=== PATIENT | male | born 1995 ===

== ENCOUNTER 2021-12-02 23:27 | Emergency (ER) | payer OTHER, SELFPAY ==
[2021-12-02 23:39] VITALS: BP 122/64; PULSE 90; RESP 16; TEMP 37.2; O2SAT 98; BMI 24.3
[2021-12-03 02:10] VITALS: BP 116/76; PULSE 88; RESP 18; O2SAT 98
[2021-12-03 03:30] VITALS: BP 122/61; PULSE 85; RESP 14; TEMP 37.3; O2SAT 97
--- NOTE | 2021-12-03 03:45 | ED.NAVMDI ---
HPI - Nausea/Vomiting/Diarrhea General Chief complaint: Nausea/Vomiting/Diarrhea Stated complaint: vomiting all day; shrimp allergy? Time Seen by Provider: 12/03/21 03:44 Source: patient and family ( Friend) Mode of arrival: ambulatory Limitations: no limitations History of Present Illness HPI Narrative: 26-year-old male came in for evaluation of nausea vomiting and diarrhea. Patient's symptoms started since last night 3 hours after eating shrimp and [place], patient flew in to [facility] [place] been having nonstop vomiting, upper epigastric abdominal pain with vomiting. No relieving factor, no aggravating factor, vomiting is associated with upper epigastric pain but no lower or right lower quadrant tenderness or pain. Never had abdominal surgery. Related Data Allergies Allergy/AdvReac Type Severity Reaction Status Date / Time No Known Allergies Allergy Verified 12/02/21 23:39 Review of Systems Review of Systems: All other systems are reviewed and are negative Constitutional: Reports as per HPI and Reports no additional constitutional complaints Eyes: Reports as per HPI and Reports no additional eye complaints Reports system reviewed and no additional complaints, except as documented Cardiovascular: Reports as per HPI and Reports no additional cardiovascular complaints Respiratory: Reports as per HPI and Reports no additional respiratory complaints Gastrointestinal: Reports as per HPI and Reports no additional gastrointestinal complaints Genitourinary: Reports no additional female genitourinary complaints Musculoskeletal: Reports no additional musculoskeletal complaints Skin/Breast: Reports system reviewed and no additional complaints, except as docu Psychiatric: Reports no additional psychiatric complaints Endocrine: Reports no additional endocrine complaints Hematologic/Lymphatic: Reports no additional hematologic/lymphatic complaints Allergic/Immunologic: Reports no additional allergic/immunologic complaints Reports system reviewed and no additional complaints, except as documented and Reports Abnormal speech present [facility] Past Medical History Medical History No known health problems Social History Social History Alcohol intake: unknown Patient Tobacco Use Status: Never used Tobacco Use of substances other than those prescribed or required for medical reasons: Unknown Physical Exam Vital Signs: Vital Signs: Last Vital Signs Temp 98.9 F 12/02/21 23:39 Pulse 88 12/03/21 02:10 Resp 18 12/03/21 02:10 BP 116/76 12/03/21 02:10 Pulse Ox 98 12/03/21 02:10 BMI result Body Mass Index 24.3 vital signs have been reviewed as appeared to be correct. Blood pressure normal. Heart rate normal. Respiration rate normal. Temperature normal. Oxygen saturation normal. Appearance: Alert. Oriented X3. No acute distress. Head: Normal external exam. Normocephalic. Atraumatic. No Fuentes signs noted. No raccoon eyes noted Eyes: PERRLA. EOMI. Conjunctiva and sclera normal. Eyelids normal. ENT: TM's Normal. Pharynx normal. Uvula midline. Moist mucous membranes. No trismus noted. No drooling noted. No muffled voice noted. Neck: Normal inspection. Neck supple. FROM. No adenopathy. Thyroid Normal. No meningeal signs. No neck mass noted. CVS: Normal heart rate and rhythm. Heart sound normal. No murmurs noted. Pulses normal throughout. Respiratory: No respiratory distress. Painless inspiration. Breath sounds normal. No wheezes/rales/rhonchi noted. Chest nontender. No accessory muscle usage noted or decreased air movement noted. Abdomen: Soft , mild epigastric tenderness with no rebound tenderness , or guarding.. Bowel sounds normal in all 4 quadrants. No distention noted. No organomegaly noted. No visible injury noted. Back: No CVA tenderness. Full range of motion noted. Skin: Skin warm and dry. Normal skin color. Normal skin turgor. No rashes/lesions/lacerations noted. Extremities: No lower extremity edema. Extremities exhibit normal range of motion. Extremities nontender. Neuro: Oriented X 3. Cranial nerve exam: II-XII are grossly intact No motor deficit. No sensory deficit. Reflexes normal. Course Course Course Narrative: Assessment and plan. 26-year-old male came in after eating shrimp last night with vomiting and diarrhea. Physical exam and lab finding are more consistent with gastroenteritis. Patient now feels better after IV hydration and Zofran, able to tolerate clear fluid in the emergency department will discharge home. Discharge Plan Discharge Clinical Impression: Gastroenteritis Patient Disposition: Home, Self-Care Instructions: Gastroenteritis (ED) Referrals: Physician,Paulo J [Primary Care Provider] - 2 days
[2021-12-03 03:46] VITALS: BP 122/61; PULSE 85; RESP 14; TEMP 37.3; O2SAT 97
[2021-12-03 03:58] LABS: Basophils Percent Auto 0.3 % (0-2); Eosinophils Percent Auto 0.3 % (0-4); Hematocrit 49.1 % (42.0-52.0); Hemoglobin 16.5 g/dl (14.0-18.0); Imm Gran Abs Auto 0.05 X10*3/uL (0.00-0.03); Imm Gran Pct Auto 0.5 % (0.0-0.4); Lymphocytes Absolute Auto 0.3 X10*3/uL (1.2-4.9); Lymphocytes Percent Auto 3.1 % (20-40); MANUAL DIFF FLAG SCAN; Mean Corpuscular HGB Conc 33.6 g/dl (31.0-36.0); Mean Corpuscular Hemoglobin 29.1 pg (27.0-33.0); Mean Corpuscular Volume 86.6 fL (80.0-98.0); Mean Platelet Volume 10.2 fL (9.4-12.4); Monocytes Absolute Auto 0.4 X10*3/uL (0.1-1.2); Monocytes Percent Auto 3.8 % (2-11); Neutrophils Absolute Auto 9.8 x10*3/uL (2.0-8.3); Platelet Count 224 X10*3/uL (160-400); Red Blood Count 5.67 X10*6/uL (4.60-5.80); Red Cell Distribution Width 12.2 % (11.0-16.0); SCAN SMEAR FLAG 1; White Blood Count 10.7 X10*3/uL (4.8-10.8)
[2021-12-03 04:01] LABS: Appearance Urine CLEAR; Color Urine YELLOW; Glucose Urine UA NEG (NEG); Leukocyte Esterase Urine NEG (NEG); Nitrite Urine NEG (NEG); Urine Blood NEG (NEG); Urine Ketones NEG (NEG); Urine Protein TRACE MG/DL (NEG-TRACE)
[2021-12-03 04:06] LABS: SLIDE REVIEW VERIFIED
[2021-12-03] MEDS: Magnesium Hydrox/Alum Hydrox 30 ML ORAL.SUSP PO (04:11)
[2021-12-03] MEDS: ondansetron HCL 4 MG/2 ML VIAL IVPUSH (04:11)
[2021-12-03] MEDS: Famotidine/PF 20 MG/2 ML VIAL IVPUSH (04:11)
[2021-12-03] MEDS: 0.9 % Sodium Chloride 1,000 ML 999 ML IV (04:11)
[2021-12-03 04:21] LABS: Alanine Aminotransferase 27 U/L (0-40); Albumin Level 4.9 g/dL (3.5-5.0); Alkaline Phosphatase 58 U/L (39-117); Anion Gap 13 (12-20); Aspartate Amino Transferase 16 U/L (5-37); Bilirubin Direct 0.4 mg/dL (0.0-0.5); Bilirubin Total 1.2 mg/dL (0.0-1.0); Blood Urea Nitrogen 13 mg/dL (9-16); Calcium 9.9 mg/dL (8.4-10.2); Carbon Dioxide 27 mmol/L (22-29); Chloride 101 mmol/L (96-108); Creatinine Clr Calc Pharmacy 128.1; Estimated Glomerular Filt Rate > 60; Glucose Random 109 mg/dL (60-115); Lipase 14 U/L (8-78); Potassium 4.4 mmol/L (3.3-5.1); Sodium 137 mmol/L (135-145)
[2021-12-03 06:00] VITALS: BP 131/61; PULSE 86; RESP 15; O2SAT 97
== END 2021-12-03 07:06 | disposition home or self-care (01) ==
PROVIDERS: Emergency Provider Emergency Medicine
DX: K52.9 Noninfective gastroenteritis and colitis, unspecified (principal)
CPT/HCPCS: 36415; 80048; 80076; 81003; 83690; 85025; 96361; 96374; 96375; 99284; 99285; J2405

== ENCOUNTER 2023-07-19 16:42 | Emergency (ER) | payer OTHER, SELFPAY ==
--- NOTE | ~2023-07-19 | CT_ITS ---
EXAMINATION: CT ABDOMEN AND PELVIS WITH CONTRAST CLINICAL INFORMATION: Left lower quadrant pain COMPARISON: None available. TECHNIQUE: Multidetector volumetric images were obtained from the superior aspect of the liver through the pubic symphysis following administration 85 mL of Omnipaque 350 intravenous contrast. Sagittal and coronal reformatted images were obtained on the technologist's workstation. Oral contrast: No This CT examination was performed using dose optimization techniques as appropriate, variously including the following: *Automated exposure control *Adjustment of mA and/or kV according to patient size (this includes techniques or standardized protocols for targeted exams where dose is matched to indication/reason for exam; i.e. extremities or head) *Use of iterative reconstruction technique DLP: 509 mGy-cm FINDINGS: LUNG BASES: The visualized lung bases are unremarkable. LIVER, GALLBLADDER, AND BILIARY TREE: The liver is normal in size, shape, and attenuation. No focal hepatic lesion or biliary ductal dilatation is present. The gallbladder is unremarkable with no evidence of radiopaque gallstones, gallbladder wall thickening, or obvious pericholecystic inflammatory changes. PANCREAS: Unremarkable. SPLEEN: Unremarkable. ADRENAL GLANDS: Unremarkable. KIDNEYS AND URETERS: The kidneys are normal in size, shape, and attenuation. No hydronephrosis, hydroureter, or calculi seen. No perinephric stranding. BLADDER: Unremarkable. GASTROINTESTINAL TRACT: There are subtle areas of inflammatory changes. The sigmoid colon to the level of the splenic flexure appears thickened even the left with collapsed state with mild engorgement of the vasa recta. Similar changes also noted involving the terminal ileum some mucosal edema noted with bowel wall thickening and disorder motility. Normal appendix. Mild adenopathy especially ileocolic mesentery. ABDOMINAL WALL: No significant hernia is appreciated. LYMPH NODES: Normal. VASCULAR: Unremarkable. PELVIC VISCERA: Unremarkable. OSSEOUS STRUCTURES: Unremarkable. CT/CT abdomen pelvis w IV con IMPRESSION: Nonspecific inflammatory changes involving the terminal ileum and sigmoid colon as above. Correlate with any history of inflammatory bowel disease. Pattern favors an infectious versus an inflammatory ileocolitis. Fleischner guidelines were followed.
--- NOTE | 2023-07-19 16:45 | ED.ABDPAIN ---
HPI - Abdominal Pain General Chief Complaint: Abdominal Pain Stated Complaint: abdominal pain Time Seen by Provider: 07/19/23 17:02 Source: patient Mode of arrival: ambulatory Limitations: no limitations History of Present Illness HPI narrative: Patient is a 28-year-old male presenting to the emergency department with complaint of left lower quadrant abdominal pain as well as diarrhea for the past 3 days. Reports last night had sweats and chills but did not take temperature. Reports nausea due to the pain but denies any vomiting. Denies any cough or other respiratory complaints. States that he returned from [place] on Thursday. Denies any blood in his stool or dark, tarry stool. Any urinary frequency, dysuria, hematuria or other urinary symptoms. Denies back or flank pain. MD elicited complaint: abdominal pain Pertinent past history: other (Recent travel) Onset (ago): day(s) Pain Consistency: colicky Location: LLQ Severity: severe Quality: cramping Exacerbating factors: nothing Relieving factors: nothing Context: foreign travel Associated symptoms: nausea and chills Related Data Allergies Allergy/AdvReac Type Severity Reaction Status Date / Time No Known Allergies Allergy Verified 07/19/23 16:49 Review of Systems Review of Systems As per HPI. Yes all other systems are reviewed and are negative Constitutional: Reports as per HPI PMF Past Medical History Medical History No known health problems Social History Social History Alcohol intake: unknown Patient Tobacco Use Status: Never used Tobacco Smoked in Last 30 Days: No Substance Use Type: Marijuana Advance Directives: No Physical Exam ED Vital Signs: Vital Signs - 24 hr 07/19/23 16:46 Temperature 98.5 F Pulse Rate 93 Respiratory Rate 16 Blood Pressure 131/86 Pulse Oximetry 99 Oxygen Delivery Method Room Air BMI result Body Mass Index 24.1 Vital signs have been reviewed and appear to be correct. Blood pressure normal. Heart rate normal. Respiratory rate normal. Temperature normal. Oxygen saturation normal. Const General: cooperative, healthy appearing and no acute distress Orientation/consciousness: oriented to person, oriented to place, oriented to time and patient oriented x3 Limitations: no limitations HENMT Head: Yes normocephalic and Yes atraumatic Ears: external ears normal General nose exam: Normal external nose present Face and sinus: Yes face symmetric Mouth: oropharynx normal and moist mucous membranes Throat: Yes uvula midline Eyes Pupils: Equal, round and reactive pupils present Neck Neck: Yes normal visual inspection and Yes supple Resp Effort & Inspection: normal respiratory effort and able to speak in complete sentences Auscultation: clear to auscultation bilaterally Cardio Rate: regular rate Rhythm: regular rhythm Heart sounds: S1 normal heart sound present and S2 normal heart sound present GI Inspection: Yes normal to inspection Palpation (GI): Soft to palpation, Tenderness to palpation present (GI) in the LLQ, no guarding and No Rebound tenderness present Auscultation: normoactive bowel sounds General: Yes no CVA tenderness Back/Spine/Pelvis Back: no CVA tenderness Skin General skin exam: elasticity normal and turgor normal Neuro General: oriented to person, oriented to place, oriented to time, patient oriented x3, moves all extremities, no focal motor deficits and CN's II-XI intact bilaterally Cranial nerves: Yes Equal, round and reactive pupils present Cognition (Neuro): normal cognition Extrem General: Yes full ROM, Yes no pedal edema and Yes no calf tenderness Psych Mental Status: mental status grossly normal Affect: normal affect Thought process: Normal thought process present Course Course Course Narrative: RME - 28 yo male presents to the ER for evaluation of 3 days of lower abdominal pain (L>R) and clear diarrhea w/ small specks of non-bloody stool x6 today, x13 yesterday. +nausea but no vomiting. + fever 2 nights ago. No urinary symptoms. No known sick contacts. Recently traveled to [facility] last week. +LLQ tenderness on exam. 7/10 pain now w/ nausea. Plan: lab workup, stool studies, CT scan Medical Decision Making Medical Decision Making MDM Narrative: Patient is a 28-year-old male presenting to the emergency department with complaint of left lower quadrant abdominal pain as well as diarrhea for the past 3 days. On exam patient is awake, A+Ox3, VS WNL, afebrile, normal neurological exam without focal deficits, physical exam findings as above. Given reported symptoms and physical exam findings, initial differential includes traveler's diarrhea, diverticulitis, gastroenteritis, UTI/renal colic. Do not suspect testicular torsion, mesenteric ischemia, SBO. Labs notable for no leukocytosis, no anemia, no electrolyte abnormalities. CT notable for nonspecific inflammatory changes involving the terminal ileum and sigmoid colon consistent with infectious ileocolitis. My interpretation is in agreement with the radiologist's interpretation. Results discussed with patient and all questions answered. The patient is stable for discharge home at this time. No stool specimen obtained while patient in the ED. Patient provided with outpatient lab requisition for GI panel and C diff testing. Advised patient to ensure adequate fluid intake, adequate rest. Return precautions discussed at bedside. Patient verbalized understanding of and agreement with plan. Differential Diagnosis Differential Diagnoses: The differential diagnosis associated with the presentation includes As per [facility]. Admission/Observation Consideration of admission/observation: Escalation of care including admission/observation considered Lab Data [facility] Lab Attestation statement: I reviewed the patient's lab results. As per [facility]. 07/19/23 16:56 07/19/23 16:56 Labs: Lab Results 07/19/23 Range/Units 16:56 WBC 9.0 (4.8-10.8) X10*3/uL RBC 5.23 (4.60-5.80) X10*6/uL Hgb 15.0 (14.0-18.0) g/dl Hct 44.7 (42.0-52.0) % MCV 85.5 (80.0-98.0) fL MCH 28.7 (27.0-33.0) pg MCHC 33.6 (31.0-36.0) g/dl RDW 12.4 (11.0-16.0) % Plt Count 224 (160-400) X10*3/uL MPV 10.0 (9.4-12.4) fL Immature Gran % (Auto) 0.3 (0.0-0.4) % Neut % (Auto) 76.9 H (45-73) % Lymph % (Auto) 14.6 L (20-40) % Sterling % (Auto) 7.1 (2-11) % Eos % (Auto) 0.8 (0-4) % Baso % (Auto) 0.3 (0-2) % Lymph # (Auto) 1.3 (1.2-4.9) X10*3/uL Sterling # (Auto) 0.6 (0.1-1.2) X10*3/uL Eos # (Auto) 0.1 (0.0-0.4) X10*3/uL Baso # (Auto) 0.0 (0.0-0.2) X10*3/uL Abs Immat Gran (auto) 0.03 (0.00-0.03) X10*3/uL Absolute Neuts (auto) 6.9 (2.0-8.3) x10*3/uL Absolute Nucleated RBC 0.000 (0.0-0.012) X10*3/uL Nucleated RBC % (auto) 0.0 (0.0-0.2) /100WBC Sodium 138 (135-145) mmol/L Potassium 3.7 (3.3-5.1) mmol/L Chloride 104 (96-108) mmol/L Carbon Dioxide 22 (22-29) mmol/L Anion Gap 16 (12-20) BUN 11 (9-16) mg/dL Creatinine 0.90 (0.5-1.4) mg/dL Estim Creat Clear Calc 127.2 Estimated GFR > 60 Random Glucose 105 (60-115) mg/dL Calcium 9.9 (8.4-10.2) mg/dL Magnesium 2.1 (1.6-2.6) mg/dL Total Bilirubin 0.6 (0.0-1.0) mg/dL Direct Bilirubin 0.2 (0.0-0.5) mg/dL AST 20 (5-37) U/L ALT 26 (0-40) U/L Alkaline Phosphatase 72 (39-117) U/L Total Protein 7.7 (6.5-8.0) g/dL Albumin 4.5 (3.5-5.0) g/dL Independent Interpretation I performed an independent interpretation of an: CT Scan Interpretation: Nonspecific inflammatory changes to terminal ileum and sigmoid colon consistent with infectious etiology Radiology Impression Discussion of test interpretation with radiology: I have reviewed the radiologist's reading. Radiologist Impression: CT/CT abdomen pelvis w IV con IMPRESSION: Nonspecific inflammatory changes involving the terminal ileum and sigmoid colon as above. Correlate with any history of inflammatory bowel disease. Pattern favors an infectious versus an inflammatory ileocolitis. Fleischner guidelines were followed. External Record Review External record reviewed: Inpatient record, Office record and Outpatient record Medications Administered Discontinued Medications Generic Name Dose Route Start Last Admin Trade Name Freq PRN Reason Stop Dose Admin Sodium Chloride 1,000 mls @ 999 mls/hr 07/19/23 17:15 07/19/23 17:17 Ns IV 07/19/23 18:15 999 mls/hr .Q1H1M DELICIA Administration Iohexol 100 ml 07/19/23 17:42 07/19/23 17:43 Iohexol 350 Mg/Ml 100 Ml Infus..Btl IV 07/19/23 17:43 85 ml ONCE ONE Administration Morphine Sulfate 4 mg 07/19/23 16:50 07/19/23 17:17 Morphine Sulfate 4 Mg/Ml Cartridge IVPUSH 07/19/23 16:51 4 mg ONCE ONE Administration Protocol Ondansetron HCl 4 mg 07/19/23 16:50 07/19/23 17:18 Ondansetron Hcl 4 Mg/2 Ml Vial IVPUSH 07/19/23 16:51 4 mg ONCE ONE Administration Discharge Plan Discharge Clinical Impression: Diarrhea Qualifiers: Diarrhea type: unspecified type Qualified Code(s): R19.7 - Diarrhea, unspecified Patient Disposition: Home, Self-Care Instructions: Traveler's Diarrhea (ED), Acute Diarrhea (ED) Additional Instructions: You have been evaluated in the emergency department today for abdominal pain and diarrhea. Your CT scan showed evidence of inflammation in your colon. Your unable to provide a stool specimen in the emergency department today. You were provided with an outpatient order for stool testing. Please go to the lab tomorrow morning to obtain necessary collection items to provide a stool sample. Please schedule an appointment with your primary care physician. Return to the emergency department if you experience worsening or uncontrolled pain, fevers 100.4? F or greater, recurrent vomiting, inability to tolerate food or fluids by mouth, bloody stools or vomit, black or tarry stools, or any other concerning symptoms.
[2023-07-19 16:46] VITALS: BP 131/86; PULSE 93; RESP 16; TEMP 36.9; O2SAT 99; BMI 24.1
[2023-07-19 17:01] LABS: MANUAL DIFF FLAG NO
[2023-07-19 17:02] LABS: Basophils Percent Auto 0.3 % (0-2); Eosinophils Absolute Auto 0.1 X10*3/uL (0.0-0.4); Eosinophils Percent Auto 0.8 % (0-4); Hematocrit 44.7 % (42.0-52.0); Imm Gran Abs Auto 0.03 X10*3/uL (0.00-0.03); Imm Gran Pct Auto 0.3 % (0.0-0.4); Lymphocytes Absolute Auto 1.3 X10*3/uL (1.2-4.9); Lymphocytes Percent Auto 14.6 % (20-40); Mean Corpuscular HGB Conc 33.6 g/dl (31.0-36.0); Mean Corpuscular Hemoglobin 28.7 pg (27.0-33.0); Mean Corpuscular Volume 85.5 fL (80.0-98.0); Monocytes Absolute Auto 0.6 X10*3/uL (0.1-1.2); Monocytes Percent Auto 7.1 % (2-11); Neutrophils Absolute Auto 6.9 x10*3/uL (2.0-8.3); Neutrophils Percent Auto 76.9 % (45-73); Platelet Count 224 X10*3/uL (160-400); Red Blood Count 5.23 X10*6/uL (4.60-5.80); Red Cell Distribution Width 12.4 % (11.0-16.0)
[2023-07-19 17:17] LABS: Alanine Aminotransferase 26 U/L (0-40); Albumin Level 4.5 g/dL (3.5-5.0); Alkaline Phosphatase 72 U/L (39-117); Anion Gap 16 (12-20); Aspartate Amino Transferase 20 U/L (5-37); Bilirubin Direct 0.2 mg/dL (0.0-0.5); Bilirubin Total 0.6 mg/dL (0.0-1.0); Blood Urea Nitrogen 11 mg/dL (9-16); Calcium 9.9 mg/dL (8.4-10.2); Carbon Dioxide 22 mmol/L (22-29); Chloride 104 mmol/L (96-108); Creatinine Clr Calc Pharmacy 127.2; Estimated Glomerular Filt Rate > 60; Glucose Random 105 mg/dL (60-115); Magnesium 2.1 mg/dL (1.6-2.6); Potassium 3.7 mmol/L (3.3-5.1); Sodium 138 mmol/L (135-145); Total Protein 7.7 g/dL (6.5-8.0)
[2023-07-19] MEDS: Morphine Sulfate 4 MG/ML CARTRIDGE IVPUSH (17:17)
[2023-07-19] MEDS: 0.9 % Sodium Chloride 1,000 ML 999 ML IV (17:17)
[2023-07-19] MEDS: ondansetron HCL 4 MG/2 ML VIAL IVPUSH (17:18)
[2023-07-19] MEDS: iohexoL 350 MG/ML 100 ML INFUS..BTL IV (17:43)
== END 2023-07-19 19:25 | disposition home or self-care (01) ==
PROVIDERS: Physician Assistant; Emergency Provider Emergency Medicine
DX: R10.32 Left lower quadrant pain (principal); R11.2 Nausea with vomiting, unspecified; Z79.899 Other long term (current) drug therapy
CPT/HCPCS: 36415; 74177; 80048; 80076; 83735; 85025; 96361; 96374; 96375; 99284; J2270; J2405; Q9967

== ENCOUNTER 2023-07-20 10:04 | Outpatient (REF) | payer OTHER, SELFPAY ==
[2023-07-20 13:29] LABS: CDiff Gene PCR NEGATIVE (Negative)
[2023-07-20 16:10] LABS: Adenovirus F 40/41 Not Detected (Not Detect.); Astrovirus Not Detected (Not Detect.); Campylobacter Not Detected (Not Detect.); Cryptosporidium Not Detected (Not Detect.); Cyclospora cayetanensis Not Detected (Not Detect.); E. coli EAEC Not Detected (Not Detect.); E. coli EPEC Not Detected (Not Detect.); E. coli ETEC Not Detected (Not Detect.); E. coli STEC Not Detected (Not Detect.); Entamoeba histolytica Not Detected (Not Detect.); Giardia lamblia Not Detected (Not Detect.); Norovirus GI/GII Not Detected (Not Detect.); Plesiomonas shigelloides Not Detected (Not Detect.); Rotavirus A Not Detected (Not Detect.); Salmonella Not Detected (Not Detect.); Sapovirus Not Detected (Not Detect.); Vibrio Not Detected (Not Detect.); Vibrio Cholerae Not Detected (Not Detect.); Yersinia enterocolitica Not Detected (Not Detect.)
[2023-07-21 11:15] LABS: Shigella sp./EIEC Detected (Not Detect.)
== END 2023-07-20 10:05 | disposition home or self-care (01) ==
LOC: HO.LAB 10:04
PROVIDERS: Visit Provider Registered Nurse Emergency
DX: R19.7 Diarrhea, unspecified (principal)
CPT/HCPCS: 87493; 87507

== ENCOUNTER 2023-07-20 10:25 | Emergency (ER) | payer OTHER, SELFPAY ==
[2023-07-20 11:13] VITALS: BP 101/59; PULSE 75; RESP 16; TEMP 36.1; O2SAT 98; BMI 26.5
--- NOTE | 2023-07-20 11:14 | ED_ITS ---
HPI - Abdominal Pain General Chief Complaint: Abdominal Pain Stated Complaint: Abd pain Time Seen by Provider: 07/20/23 11:47 Source: patient Mode of arrival: ambulatory Limitations: no limitations History of Present Illness HPI narrative: Patient seen yesterday after traveling to [place] for abdominal pain and diarrhea. CT showed areas of his colon with inflammation. Today with increased pain and some mild blood. MD elicited complaint: abdominal pain Pertinent past history: other (travel) Pain Consistency: constant Location: diffuse Severity: moderate Quality: cramping Context: foreign travel Related Data Previous Rx's Medication Instructions Recorded hyoscyamine sulfate 0.125 mg 0.125 mg PO QID PRN dyspepsia #10 07/20/23 tablet (Levsin) tabs levofloxacin 500 mg tablet 500 mg PO DAILY 7 days #7 tabs 07/20/23 metronidazole 375 mg capsule 500 mg (1.3333 x 375 mg) PO TID 07/20/23 (Flagyl) #21 caps Allergies Allergy/AdvReac Type Severity Reaction Status Date / Time No Known Allergies Allergy Verified 07/19/23 16:49 Review of Systems Review of Systems Yes all other systems are reviewed and are negative Denies Sensory deficit (Neuro) FOR[facility] Past Medical History Medical History No known health problems Social History Social History Alcohol intake: unknown Patient Tobacco Use Status: Never used Tobacco Smoked in Last 30 Days: No Substance Use Type: Marijuana Advance Directives: No Advance Directives Information Provided: Yes Physical Exam ED Vital Signs: Vital Signs - 24 hr 07/20/23 11:56 Temperature 97.4 F Pulse Rate 65 Respiratory Rate 18 Blood Pressure 123/68 Pulse Oximetry 96 Oxygen Delivery Method Room Air BMI result Body Mass Index 26.5 Const General: healthy appearing Nutritional Appearance: average body habitus Orientation/consciousness: oriented to person and patient oriented x3 Limitations: no limitations HENMT Head: Yes normal to inspection Ears: external ears normal General nose exam: Normal external nose present Mouth: Normal oral and palatal mucosa present and oropharynx normal Throat: Yes posterior oropharynx normal Eyes General: appearance normal, both eyes and all related structures Neck Neck: Yes normal visual inspection Chest Chest palpation & inspection: normal inspection of the chest Resp Auscultation: clear to auscultation bilaterally Cardio Jugular venous distension: no JVD Rate: regular rate Rhythm: regular rhythm Heart sounds: S1 normal heart sound present and S2 normal heart sound present GI Inspection: Yes normal to inspection Palpation (GI): Soft to palpation, nontender and No hepatosplenomegaly present Auscultation: normal bowel sounds General: Yes no CVA tenderness Back/Spine/Pelvis Back: no CVA tenderness Skin General skin exam: no rashes or lesions noted Neuro General: oriented to person and patient oriented x3 Cranial nerves: Yes CN's II-XII intact bilaterally Motor exam (neuro): 5/5 motor strength present throughout Sensory Exam: No Sensory deficit (Neuro) Extrem General: Yes normal to inspection Psych Appearance: grossly normal Course Course Course Narrative: This is an RME: Additional HPI, ROS, PE not included below will be deferred to primary provider. This is a [id number] presenting to the ER with complaints of continued abdominal pain for the last 4 days. Patient was seen in the emergency department yesterday where he had a CT scan notable for nonspecific inflammatory changes involving the terminal ileum sigmoid colon consistent with infectious ileocolitis. He was unable to provide stool while in the emergency department was given outpatient lab requisition for GI panel and C diff testing. Patient states that he went home after being discharged yesterday and his pain has only worsened. He admits to having some constipation and intermittent diarrhea. No bloody stool. No vomiting. No exquisite tenderness to abdominal examination at this time, will hold off on repeat imaging until seen by primary provider. Vital signs stable. Patient nontoxic appearing. Plan: Repeat basic labs 07/21/23--1119--patient's stool culture grew Shigella, patient was discharged on Levaquin and metronidazole. Called and informed patient of results, he is on the correct treatment. Discussed worrisome signs and symptoms and strict return precautions and needed close follow-up with PCP Medical Decision Making Differential Diagnosis Differential Diagnoses: The differential diagnosis associated with the presentation includes (Colitis, travelers diarrhea, diverticulitis were all considered) Admission/Observation Consideration of admission/observation: Escalation of care including admission/observation considered (upon arrival patient was considered for admission) Lab Data MDM Lab Attestation statement: I reviewed the patient's lab results. (normal wbc, cdiff negative) 07/20/23 11:54 07/20/23 11:54 Labs: Lab Results 07/20/23 07/20/23 Range/Units 10:30 11:54 WBC 7.8 (4.8-10.8) X10*3/uL RBC 5.29 (4.60-5.80) X10*6/uL Hgb 15.6 (14.0-18.0) g/dl Hct 45.7 (42.0-52.0) % MCV 86.4 (80.0-98.0) fL MCH 29.5 (27.0-33.0) pg MCHC 34.1 (31.0-36.0) g/dl RDW 12.4 (11.0-16.0) % Plt Count 250 (160-400) X10*3/uL MPV 10.2 (9.4-12.4) fL Immature Gran % (Auto) 0.4 (0.0-0.4) % Neut % (Auto) 70.2 (45-73) % Lymph % (Auto) 17.5 L (20-40) % [place] % (Auto) 9.7 (2-11) % Eos % (Auto) 1.7 (0-4) % Baso % (Auto) 0.5 (0-2) % Lymph # (Auto) 1.4 (1.2-4.9) X10*3/uL [place] # (Auto) 0.8 (0.1-1.2) X10*3/uL Eos # (Auto) 0.1 (0.0-0.4) X10*3/uL Baso # (Auto) 0.0 (0.0-0.2) X10*3/uL Abs Immat Gran (auto) 0.03 (0.00-0.03) X10*3/uL Absolute Neuts (auto) 5.5 (2.0-8.3) x10*3/uL Absolute Nucleated RBC 0.000 (0.0-0.012) X10*3/uL Nucleated RBC % (auto) 0.0 (0.0-0.2) /100WBC Sodium 142 (135-145) mmol/L Potassium 3.8 (3.3-5.1) mmol/L Chloride 105 (96-108) mmol/L Carbon Dioxide 28 (22-29) mmol/L Anion Gap 13 (12-20) BUN 9 (9-16) mg/dL Creatinine 0.97 (0.5-1.4) mg/dL Estim Creat Clear Calc 118.1 Estimated GFR > 60 Random Glucose 80 (60-115) mg/dL Calcium 10.2 (8.4-10.2) mg/dL Magnesium 2.2 (1.6-2.6) mg/dL Total Bilirubin 0.5 (0.0-1.0) mg/dL Direct Bilirubin 0.2 (0.0-0.5) mg/dL AST 20 (5-37) U/L ALT 25 (0-40) U/L Alkaline Phosphatase 66 (39-117) U/L Total Protein 7.8 (6.5-8.0) g/dL Albumin 4.5 (3.5-5.0) g/dL Lipase 18 (8-78) U/L Stool Leukocytes, Qual MOD: 3-9/OIF (NEGATIVE) Tests considered The following testing was considered but not selected: CT scan considered but patient had one yesterday Prescription Management I considered prescription management with: Antibiotic (with recent travel will give abx) Medications Administered Discontinued Medications Generic Name Dose Route Start Last Admin Trade Name Freq PRN Reason Stop Dose Admin Belladonna Alkaloids/Phenobarbital 10 ml 07/20/23 13:00 07/20/23 13:14 Phenobarb/Hyoscy/Atropine/Scop 10 Ml Elixir PO 07/20/23 13:01 10 ml ONCE ONE Administration Metronidazole 500 mg in 100 mls @ 100 mls/hr 07/20/23 12:01 07/20/23 14:13 Flagyl IV 07/20/23 13:00 Infused ONCE ONE Infusion Levofloxacin 750 mg in 150 mls @ 100 mls/hr 07/20/23 13:00 07/20/23 14:12 Levaquin IV 100 mls/hr Q24H DELICIA Administration Discharge Plan Discharge Clinical Impression: Colitis, Travelers' diarrhea Patient Disposition: Home, Self-Care Instructions: Traveler's Diarrhea (ED), Acute Diarrhea (ED), Colitis (ED) Prescriptions: New levofloxacin 500 mg tablet 500 mg PO DAILY 7 Days Qty: 7 0RF metronidazole [Flagyl] 375 mg capsule 500 mg PO TID Qty: 21 0RF hyoscyamine sulfate [Levsin] 0.125 mg tablet 0.125 mg PO QID PRN (Reason: dyspepsia) Qty: 10 0RF Stand Alone Forms: Work/School Release Interventions: ED Discharge Assessment Last Done: 07/20/23 15:27 Discharge Date/Time: 07/20/23 15:30
--- NOTE | 2023-07-20 11:44 | PC.NURSE ---
Patient report 04/27 abdominal pain, denies pain with urination, last BM today, with bright red blood, patient reports constipation, reports was here yesterday for same pain, however pain has gotten worse. Reports being unable to eat and has never had this cutler before.
[2023-07-20 11:56] VITALS: BP 123/68; PULSE 65; RESP 18; TEMP 36.3; O2SAT 96
[2023-07-20 11:57] LABS: MANUAL DIFF FLAG NO
[2023-07-20 12:01] LABS: Basophils Percent Auto 0.5 % (0-2); Eosinophils Absolute Auto 0.1 X10*3/uL (0.0-0.4); Eosinophils Percent Auto 1.7 % (0-4); Hematocrit 45.7 % (42.0-52.0); Hemoglobin 15.6 g/dl (14.0-18.0); Imm Gran Abs Auto 0.03 X10*3/uL (0.00-0.03); Imm Gran Pct Auto 0.4 % (0.0-0.4); Lymphocytes Absolute Auto 1.4 X10*3/uL (1.2-4.9); Lymphocytes Percent Auto 17.5 % (20-40); Mean Corpuscular HGB Conc 34.1 g/dl (31.0-36.0); Mean Corpuscular Hemoglobin 29.5 pg (27.0-33.0); Mean Corpuscular Volume 86.4 fL (80.0-98.0); Mean Platelet Volume 10.2 fL (9.4-12.4); Monocytes Absolute Auto 0.8 X10*3/uL (0.1-1.2); Monocytes Percent Auto 9.7 % (2-11); Neutrophils Absolute Auto 5.5 x10*3/uL (2.0-8.3); Neutrophils Percent Auto 70.2 % (45-73); Platelet Count 250 X10*3/uL (160-400); Red Blood Count 5.29 X10*6/uL (4.60-5.80); Red Cell Distribution Width 12.4 % (11.0-16.0); White Blood Count 7.8 X10*3/uL (4.8-10.8)
[2023-07-20 12:20] LABS: Alanine Aminotransferase 25 U/L (0-40); Albumin Level 4.5 g/dL (3.5-5.0); Alkaline Phosphatase 66 U/L (39-117); Anion Gap 13 (12-20); Aspartate Amino Transferase 20 U/L (5-37); Bilirubin Direct 0.2 mg/dL (0.0-0.5); Bilirubin Total 0.5 mg/dL (0.0-1.0); Blood Urea Nitrogen 9 mg/dL (9-16); Calcium 10.2 mg/dL (8.4-10.2); Carbon Dioxide 28 mmol/L (22-29); Chloride 105 mmol/L (96-108); Creatinine Clr Calc Pharmacy 118.1; Estimated Glomerular Filt Rate > 60; Glucose Random 80 mg/dL (60-115); Lipase 18 U/L (8-78); Magnesium 2.2 mg/dL (1.6-2.6); Potassium 3.8 mmol/L (3.3-5.1); Sodium 142 mmol/L (135-145); Total Protein 7.8 g/dL (6.5-8.0)
[2023-07-20] MEDS: metroNIDAZOLE/NS 500 MG/100 ML PIGGYBACK 100 MG IV (12:21)
[2023-07-20] MEDS: PHENobarb/Hyoscy/Atropine/Scop 10 ML ELIXIR PO (13:14)
--- NOTE | 2023-07-20 13:16 | PC.NURSE ---
pt medicated per MAR for increased abd pain.
[2023-07-20] MEDS: levoFLOXacin/D5W 750 MG/150 ML PIGGYBACK 100 MG IV (14:12)
[2023-07-20 14:38] LABS: Leukocytes Stool Qualitative MOD: 3-9/OIF (NEGATIVE)
== END 2023-07-20 15:30 | disposition home or self-care (01) ==
PROVIDERS: Physician Assistant Medical; Emergency Provider Emergency Medicine
DX: K52.9 Noninfective gastroenteritis and colitis, unspecified (principal); R10.2 Pelvic and perineal pain; Z79.899 Other long term (current) drug therapy
CPT/HCPCS: 36415; 80048; 80076; 83690; 83735; 85025; 87177; 87209; 89055; 96365; 96366; 96375; 99284; J1956